=== PATIENT | male | born 1960 | race Caucasian/White ===

== ENCOUNTER → 2016-09-30 | Outpatient (CLI) | payer OTHER ==
[~2016-09-30] VITALS: Ht 210.8 cm; Wt 106.1 kg
[~2016-09-30] MED LIST: BUSPAR30 MG PO; ECOTRIN325 MG PO; LIPITOR40 MG PO; METOPROLOL SUCC50 MG PO; QUINAPRIL HCL20 MG PO; VALIUM5 MG PO; WELLBUTRIN XL300 MG PO; ZANAFLEX4 MG PO; ZETIA10 MG PO
--- NOTE | ~2016-09-30 | HPC ---
[facility] [address] [place] [address] PAIN MANAGEMENT CONSULTATION Name: MARI COBB [id number] Admission: 09/30/16 Attend Phys: Juan Manuel Lynn DO Discharge: Date of : 56 Report #: [id number] THIS REPORT FOR: //name// CC: Bianka Lynn The patient is a very pleasant 56-year-old gentleman seen in consultation at the request of Dr. Kraft for evaluation of pain, upper back, left side, shoulder, neck and arm with paresthesia going into the thumb and index finger. The patient notes symptoms are present for 4-5 weeks. Denies antecedent trauma or overuse. He notes pain starts at the upper back, radiates into the shoulder and then down to his fingers with ambulation. Describes pain as constant, shooting, aching and pulling, rates anywhere from 8 to "10+" on a 0-10 visual analog scale. Has tried gabapentin only for a few days with no efficacy. He was given Naprosyn, but was loathe to take it as he thought it would interfere with his aspirin regimen. He has a history of coronary artery disease. He notes massage has helped some. The pain has interfered with sleep and significantly impacted daily living. REVIEW OF SYSTEMS: Complete review of systems attached to chart and gone over with the patient. He is , has a 65-khqh-negx smoking history, is down from 2 packs a day to 3/4 to 1 pack a day. Does not drink alcohol to excess. History of hypertension, treated with Toprol and Accupril, history of coronary artery disease status post endovascular stent, is on no blood thinners, takes 1 daily aspirin. Dyslipidemia for which he takes Zetia and Lipitor, chronic anxiety, in fact he is disabled secondary to this, takes BuSpar and buspirone as well Diazepam, the latter he takes less than once a week for acute anxiety attacks. SURGICAL HISTORY: Includes the aforementioned endovascular stent in 2002 and agnin in July 2013. Currently disabled, has been so for the past 4 years due to psychiatric disorder. The pain index score is quite high, averaging 59/70. PHYSICAL EXAMINATION: GENERAL: Reveals a 6 feet 1 inches, 234 pounds gentleman, BMI is 31 kilograms per meter squared. Blood pressure 136/79, pulse 63, respirations 16. NEUROLOGIC: Cranial nerves 2-12 are grossly intact. HEENT: Pupils equal and reactive to light and accommodation. Extraocular muscles are intact. NECK: Thyroid is unremarkable. Positive Lhermitte's with exacerbation of pain to cervical extension radiating to the left shoulder and arm. MUSCULOSKELETAL: Upper extremity strength is generally symmetric, slight decrease left triceps strength. Hand grasp is symmetric. Deep tendon reflexes, biceps are difficult to elicit, but they appear to be bilateral, brachioradialis is symmetric. Triceps reflexes are generally symmetric. Tinel's is negative. [address] [address] PAIN MANAGEMENT CONSULTATION Name: MARI COBB Room #: FLORI Foley#: [id number] Admission: 09/30/16 Attend Phys: Juan Manuel Lynn DO Discharge: Date of : 56 Report #: [id number] HEART: Regular rhythmical without murmur. LUNGS: Clear to auscultation. ABDOMEN: Unremarkable. EXTREMITIES: Gait is tandem. Lower extremity strength is preserved. Lumbar flexion is good to about 80 degrees. Does have point tenderness left of midline at C7-T1, this trigger point exacerbates the pain in neck and shoulder. ASSESSMENT: Symptomatic cervical radiculopathy by clinical exam, component of myofascial pain with trigger point noted in the left upper thoracic paravertebral muscle and overlying with latissimus dorsi. RECOMMENDATIONS: 1. We will start the patient on tizanidine 4 mg half to one tablet 3 times a day, limit 45 tablets. 2. Trigger point injection today times 2. 3. Follow up in 1-2 weeks for cervical epidural injection, if TPIs do not significantly alleviate symptoms. Thanks for allowing me to participate in the patient's care. I will keep you abreast of her progress. PROCEDURE NOTE: Trigger point times 2. PROCEDURE: After written informed consent was obtained, the patient was placed in prone position. Trigger points were identified in the superior thoracic paravertebral muscle and overlying latissimus dorsi was identified. Using a 25-gauge needle, 20 mg triamcinolone plus 5 mL of 50:50 mix 0.5% preservative-free bupivacaine plus 1.5% preservative-free Xylocaine with 1:200,000 epinephrine was injected into and around the 3 discrete triggers. Needle was removed. The area was cleansed, Band-Aids applied. The patient monitored for an appropriate period of time, discharged in good and stable condition. <ELECTRONICALLY SIGNED> By: Juan Manuel Lynn DO 10/01/16 0837 [id number] [id number] Juan Manuel Lynn DO /nt
[2016-09-30 14:15] VITALS: BP 136/74
== END ==
LOC: PAIN 07:18
DX: M54.12 Radiculopathy, cervical region (principal); M79.1 Myalgia; I10 Essential (primary) hypertension; Z87.891 Personal history of nicotine dependence; F10.21 Alcohol dependence, in remission; F32.9 Major depressive disorder, single episode, unspecified

== ENCOUNTER → 2016-10-08 | Outpatient (CLI) | payer OTHER ==
[~2016-10-08] VITALS: Ht 185.4 cm; Wt 108.3 kg
--- NOTE | ~2016-10-08 | HPC ---
[facility] [address] [place] [address] PAIN MANAGEMENT CONSULTATION Name: MARI COBB [facility] [id number] Admission: 10/08/16 Attend Phys: Juan Manuel Lynn DO Discharge: Date of : 56 Report #: [id number] THIS REPORT FOR: //name// CC: Bianka Lynn DATE OF SERVICE: 10/08/2016 The patient is a 56-year-old gentleman initially seen in consultation 09/30/2016, diagnosed with symptomatic cervical radiculopathy, component of myofascial pain. The patient was given trigger point injections at last visit, started on some tizanidine for spasm. Returns to pain clinic today noting that trigger point injections helped some. He still has fairly classic C7 radiculopathy. Pain is exacerbated with cervical extension, radiating into the left arm, triceps and middle fingers. PHYSICAL EXAMINATION: Shows a modest asymmetry with weakness in the left arm. The patient notes this subjectively as well. The left biceps and brachioradialis reflexes are diminished compared to the right. ASSESSMENT: Symptomatic cervical radiculopathy by clinical exam. RECOMMENDATION: Epidural injection under fluoroscopy today. Follow up in 4 weeks for reevaluation. We will get MRI if symptoms do not significantly improve. PROCEDURE: Cervical epidural injection under fluoroscopy. PROCEDURE NOTE: After written and informed consent was obtained including risk of dural puncture, spinal cord trauma, paralysis and increased pain, the patient was taken to the fluoroscopy suite and placed in the prone position, with appropriate abdominal bolstering, neck was flexed, palms under the thighs. Skin was prepped with ChloraPrep. Sterile draping was applied. Skin wheal with 1% Xylocaine was raised. A 22-gauge 3-1/2 inch epidural Tuohy needle was placed via a midline approach at the C7-T1 interspace, advanced under biplanar fluoroscopy using continuous loss of resistance. With appropriate loss of resistance at the expected depth on lateral view, the glass loss of resistance syringe was disconnected. A low volume extension tubing was connected to the needle and a 5 mL syringe. Negative aspiration for cerebrospinal fluid or blood was noted. A 1 mL of Omnipaque was injected which showed spread within the epidural space on biplanar fluoroscopy. This was followed with 80 mg of triamcinolone plus 1 mL of 1.5% preservative Xylocaine. Needle was withdrawn to the interspinous ligament, 0.5 mL of Xylocaine was used to flush the needle. The needle was then completely withdrawn. The area was cleansed. Band-Aid was applied. The patient was allowed to move off the procedure [place] [address] PAIN MANAGEMENT CONSULTATION Name: MARI COBB Room #: REG JUSTINE Foley#: [id number] Admission: 10/08/16 Attend Phys: Juan Manuel Lynn DO Discharge: Date of : 56 Report #: [id number] to the recovery room, monitored for an appropriate period of time, discharged in good and stable condition. <ELECTRONICALLY SIGNED> By: Juan Manuel Lynn DO 10/11/16 1118 1200 1910 Juan Manuel Lynn DO /nt
[2016-10-08 10:53] VITALS: BP 116/74
== END | disposition home or self-care (01) ==
LOC: PAIN 10-07 10:39
DX: M54.12 Radiculopathy, cervical region (principal); M79.1 Myalgia; Z87.891 Personal history of nicotine dependence

== ENCOUNTER → 2016-11-04 | Outpatient (CLI) | payer OTHER ==
[~2016-11-04] VITALS: Ht 185.4 cm; Wt 105.6 kg
--- NOTE | ~2016-11-04 | HPC ---
[facility] [place] [address] PAIN MANAGEMENT CONSULTATION Name: MARI COBB Room #: REG [facility]#: [id number] Admission: 11/04/16 Attend Phys: Juan Manuel Lynn DO Discharge: Date of : 56 Report #: [id number] THIS REPORT FOR: //name// CC: Bianka Lynn DATE OF SERVICE: 11/04/2016 The patient is a pleasant 56-year-old gentleman seen for symptomatic cervical radiculopathy, component of myofascial pain. Initially seen in consultation 09/30/2016, had some myofascial trigger points injected with overall improvement in symptoms, but had classic C6 and C7 radiculopathy. The patient was given a single cervical epidural injection at last visit 10/08/2016. Returns to pain clinic today. He is pleased to note that pain has significantly gone, rates it a 1-3 on a 0-10 visual analog scale, still has tingling in the left arm going into the thumb and index finger. Pain is exacerbated with cervical extension. He is concerned that he has returned to the gym and the left biceps strength is significantly attenuated. PHYSICAL EXAMINATION: Shows a 56-year-old gentleman, BMI is 30.7 kilograms per meter squared. Vital signs stable as noted on the EMR. Continues to smoke half pack a day, was counseled regarding same. Cervical range of motion is modestly limited. Extension does exacerbate cervical radicular symptoms on the left. Left biceps strength is diminished compared to the right. Left biceps reflex is absent, it is 1/4 in the right. Triceps and brachioradialis reflexes are symmetric 1/4. Hand grasp is generally symmetric. There are no recent diagnostic studies available at this time. We discussed therapeutic options at length today. Suggest the patient continue exercises including curls and biceps strength exercises. Continue cervical range of motion. He has history of coronary artery disease, hence nonsteroidal anti-inflammatory medications are relatively contraindicated. We have elected to defer interventional therapy at this time. Taken the liberty of making a plan to see the patient in about 4 weeks. If cervical radicular symptoms continue (paresthesia into the thumb and index finger) and/or left biceps strength is not continued to improve, we will consider repeat epidural injection and MRI at that time. If, however, he continues to show overall improvement, we will have the patient simply follow up on an as needed basis. Discharged in good and stable condition after approximately 25 minutes were spent with the patient reviewing therapeutic options, physical exam, [place] [address] PAIN MANAGEMENT CONSULTATION Name: MARI COBB Chava Room #: REG Franc Foley#: [id number] Admission: 11/04/16 Attend Phys: Juan Manuel Lynn DO Discharge: Date of : 56 Report #: [id number] processes for not prescribing an anti-inflammatory medication, holding off on MRI and interventional therapy at this time. <ELECTRONICALLY SIGNED> By: Juan Manuel Lynn DO 11/08/16 0856 1207 1458 Juan Manuel Lynn DO /nt
[2016-11-04 10:55] VITALS: BP 123/75
== END | disposition home or self-care (01) ==
LOC: PAIN 06:42
DX: M54.12 Radiculopathy, cervical region (principal); M79.1 Myalgia; I25.10 Atherosclerotic heart disease of native coronary artery without angina pectoris; F17.210 Nicotine dependence, cigarettes, uncomplicated; Z79.82 Long term (current) use of aspirin; Z98.890 Other specified postprocedural states

== ENCOUNTER → 2016-12-06 | Outpatient (CLI) | payer OTHER ==
[~2016-12-06] VITALS: Ht 185.4 cm; Wt 105.4 kg
[2016-12-06 14:38] VITALS: BP 122/73
== END | disposition home or self-care (01) ==
LOC: PAIN 06:57
DX: M54.12 Radiculopathy, cervical region (principal); I25.10 Atherosclerotic heart disease of native coronary artery without angina pectoris; I21.3 ST elevation (STEMI) myocardial infarction of unspecified site; Z79.1 Long term (current) use of non-steroidal anti-inflammatories (NSAID); F17.210 Nicotine dependence, cigarettes, uncomplicated

== ENCOUNTER → 2019-09-12 | Outpatient (CLI) | payer OTHER | LOC: SJCVC 09:39 → SJCVCIMAG 09:39 | DX: I71.4 Abdominal aortic aneurysm, without rupture (principal); I25.10 Atherosclerotic heart disease of native coronary artery without angina pectoris; E78.00 Pure hypercholesterolemia, unspecified; J44.9 Chronic obstructive pulmonary disease, unspecified; F41.9 Anxiety disorder, unspecified; I10 Essential (primary) hypertension; F17.210 Nicotine dependence, cigarettes, uncomplicated; Z79.82 Long term (current) use of aspirin; Z82.49 Family history of ischemic heart disease and other diseases of the circulatory system; Z79.899 Other long term (current) drug therapy ==

== ENCOUNTER → 2019-09-13 | Outpatient (CLI) | payer OTHER | LOC: SJCVCIMAG 11:12 | DX: R00.0 Tachycardia, unspecified (principal); I25.10 Atherosclerotic heart disease of native coronary artery without angina pectoris; I10 Essential (primary) hypertension; E78.5 Hyperlipidemia, unspecified; J44.9 Chronic obstructive pulmonary disease, unspecified; Z79.899 Other long term (current) drug therapy ==

== ENCOUNTER → 2019-09-20 | Outpatient (CLI) | payer OTHER ==
[~2019-09-20] VITALS: Ht 185.4 cm; Wt 98.4 kg
[~2019-09-20] MED LIST changes: +SILDENAFIL CIT100 MG PO
[2019-09-20 07:20] VITALS: BP 139/81
[2019-09-20 07:31] LABS: HEMATOCRIT 51.6 % (42.0-52.0); HEMOGLOBIN 17.4 gm/dL (14.0-18.0); MCH 32.2 pg (26.0-34.0); MCHC 33.8 g/dL (28.0-37.0); MCV 95.3 fL (80.0-100.0); RBC 5.41 mil/uL (4.50-6.00); RDW 14.3 % (10.5-14.5); WBC 7.8 thou/uL (4.0-11.0)
[2019-09-20 07:41] LABS: CALCIUM 8.6 mg/dL (8.5-10.1); CREATININE 1.1 mg/dL (0.7-1.3); POTASSIUM 4.3 mmol/L (3.5-5.1)
--- NOTE | 2019-09-20 08:03 | EKG ---
[facility] [place] [address] ELECTROCARDIOGRAM REPORT Name: MARI COBB Room #: REG [facility].#: [id number] Admission: 09/20/19 Attend Phys: Titus Morrison MD, Discharge: Date of : 56 Report #: [id number] THIS REPORT FOR: cc: Kavya Weaver MD, Pandurang P. MD Lundgren,Severino Valdivia MD [facility] THIS REPORT FOR: //name// [facility] Test Date: 2019-09-20 Test Time: 07:24:12 Pat Name: MARI COBB Department: Room: Gender: [employer]: Tonya ÁLVAREZ : 1960 Requested By: Titus Morrison Order Number: [id number] MD: Severino Renee Measurements Intervals [place] Rate: 74 P: -20 WI: 182 QRS: 45 QRSD: 99 T: 56 QT: 372 QTc: 413 Interpretive Statements Sinus rhythm Normal tracing Compared to ECG 08/18/2017 20:00:02 No significant changes Electronically Signed On 09-20-2019 8:01:56 CDT by Severino Renee [email or web address] <ELECTRONICALLY SIGNED> By: Severino Renee MD, [facility] 09/20/1901 3 3 Severino Renee MD, [facility] /EPI
--- NOTE | 2019-09-20 17:11 | CATHLAB ---
[facility] [place] [address] INVASIVE PROCEDURE REPORT Name: MARI COBB Chava Room #: REG JUSTINE [facility]#: [id number] Admission: 09/20/19 Attend Phys: Titus Morrison MD, Discharge: Date of : 56 Report #: [id number] THIS REPORT FOR: cc: Kavya Weaver MD, Pandurang P. MD Mancuso, Gerald M. MD [facility] ~ APPROVED REPORT Study performed: 09/20/2019 07:47:47 Patient Details Patient Status: Out-Patient Room #: The patient is a 59 year-old male Event Personnel Titus Morrison Cigar Bander, Tuyet Markham RTR, [employer] MAGISTRATE Monitor, Stacey Longo RN, Reny Borjas Procedures Performed Art Access - R femoral artery* Left Heart Cath Coronaries, Bypass Grafts [id number] LHCCORCABG Aortogram Abdominal Peripheral Angio 271132 89499 Initial Mod Sed Same Phys/QHP Gr 004599 37050 Mod Sed Same Phys/QHP Ea 924489 Hemostasis w/ Mynx Indication Positive stress test Procedure Narrative The Right Groin^ was infiltrated with 1% Lidocaine subcutaneous anesthesia. A PINNACLE 6FR Sheath #[id number] sheath was inserted into the RFA^. Coronary angiography was performed using coronary diagnostic catheters. The right coronary system was accessed and visualized with a 6FR RCB #[id number] catheter. The left coronary system was accessed and visualized with a JL4 catheter. The left ventricle was accessed and visualized with a Pigtail catheter. Left ventriculogram was performed in 30 degree projection. An aortogram of the abdominal aorta was performed. Pre-demployment femoral angiogram was performed . Closure device was deployed with a 6 Fr MynxGrip. The patient tolerated the procedure well and there were no complications associated with the procedure. There was no hematoma. Intraoperative Conscious Sedation Sedation start time: 08:37 Case end Time: 09:15 [facility] [address] [place] [address] INVASIVE PROCEDURE REPORT Name: MARI COBB Room #: [facility] Alaina#: [id number] Admission: 09/20/19 Attend Phys: Titus Morrison, Discharge: Date of : 56 Report #: [id number] Fentanyl 100 mcg Versed 2 mg Fluoro Time: 7.35 minutes Dose: DAP 7236.00 cGycm2 828 mGy Contrast Type and Amount: Omnipaque 150 ml Hemodynamics The aortic pressure is 163/79 mmHg with a mean of 102 mmHg. The left ventricular pressure is 149/12 mmHg with a mean of mmHg. The left ventricular end diastolic pressure is 26 mmHg. Conclusion #1. Normal left ventricular size and systolic function EF 50 to 55% with small area of inferior basilar hypokinesis. #2 abdominal aortogram revealing a small infrarenal aortic aneurysm this is focal and just proximal to the aortic iliac bifurcation. Will evaluate noninvasively. #3 left main distal tapered narrowing of 50% giving rise to an LAD that occludes in the moderate circumflex OM system. #4 proximal LAD occluded diagonal branch filling ostial LAD of 70% filling the small diagonal. Then the LAD occludes. #5 circumflex OM is an eccentric in-stent restenosis of 50 to 60% which seems stable supplying trifurcation vessels OM1 2 and circumflex and AV groove. Mildly diseased. #6 LOCKE to LAD is intact briskly filling the PDA this then supplies the inferior wall the PDA is filled via the system and some via the septal perforators more proximally and appears. No occlusion of disease. #7 the dominant right coronary artery is occluded it is collaterally filled predominantly through the LAD collateral at the apex. The mid and distal PDA appears fairly well-preserved. #8 the SVG to the PDA is occluded Recommendations and plan: Continue aggressive risk factor modification. There is no indication for coronary intervention. The graft to the PDA close due to diffuse disease and relatively small caliber that vessel. Also the distal half of the inferior wall which is viable and filled via the collateral filling is preserved. Only the inferior base is hypokinetic. Will see back in follow-up. Also abdominal aortic ultrasound to evaluate the small infrarenal aortic aneurysm. <ELECTRONICALLY SIGNED> By: Titus Morrison MD, FACC 09/20/191708 08 08 iTtus Morrison MD, FACC /INF
== END | disposition home or self-care (01) ==
LOC: CATH 09-17 10:05
PROVIDERS: Internal Medicine Cardiovascular Disease
DX: R94.39 Abnormal result of other cardiovascular function study (principal); I25.810 Atherosclerosis of coronary artery bypass graft(s) without angina pectoris; I71.4 Abdominal aortic aneurysm, without rupture; T82.855A Stenosis of coronary artery stent, initial encounter; I10 Essential (primary) hypertension; E78.5 Hyperlipidemia, unspecified; J44.9 Chronic obstructive pulmonary disease, unspecified; I25.2 Old myocardial infarction; F17.210 Nicotine dependence, cigarettes, uncomplicated; Z98.890 Other specified postprocedural states; Z79.899 Other long term (current) drug therapy; Z95.1 Presence of aortocoronary bypass graft; Z86.73 Personal history of transient ischemic attack (TIA), and cerebral infarction without residual deficits; Z91.040 Latex allergy status

== ENCOUNTER → 2020-06-17 | Outpatient (CLI) | payer OTHER | LOC: SJCVCIMAG 09:27 | PROVIDERS: ATTEND Internal Medicine Cardiovascular Disease | DX: I71.4 Abdominal aortic aneurysm, without rupture (principal); I25.810 Atherosclerosis of coronary artery bypass graft(s) without angina pectoris; I10 Essential (primary) hypertension; E78.00 Pure hypercholesterolemia, unspecified; I65.23 Occlusion and stenosis of bilateral carotid arteries; J44.9 Chronic obstructive pulmonary disease, unspecified; F17.210 Nicotine dependence, cigarettes, uncomplicated; Z95.1 Presence of aortocoronary bypass graft; Z82.49 Family history of ischemic heart disease and other diseases of the circulatory system; Z79.82 Long term (current) use of aspirin; Z79.899 Other long term (current) drug therapy ==

== ENCOUNTER → 2021-02-17 | Outpatient (CLI) | payer OTHER | LOC: SJCVCIMAG 08:44 | PROVIDERS: ATTEND Internal Medicine Cardiovascular Disease | DX: I65.23 Occlusion and stenosis of bilateral carotid arteries (principal); I25.10 Atherosclerotic heart disease of native coronary artery without angina pectoris; Z95.1 Presence of aortocoronary bypass graft; J44.9 Chronic obstructive pulmonary disease, unspecified; I10 Essential (primary) hypertension; E78.00 Pure hypercholesterolemia, unspecified; F17.210 Nicotine dependence, cigarettes, uncomplicated; Z95.818 Presence of other cardiac implants and grafts; Z91.040 Latex allergy status; Z79.82 Long term (current) use of aspirin; Z79.899 Other long term (current) drug therapy ==